=== PATIENT | male | born 1950 | race Caucasian/White ===

== ENCOUNTER → 2018-12-06 | Outpatient (RCR) | payer BC, MEDICARE | LOC: PT 11-08 14:05 | PROVIDERS: ATTEND Neurological Surgery | DX: M43.16 Spondylolisthesis, lumbar region (principal) ==

== ENCOUNTER 2019-01-01 17:00 | Outpatient (RCR) | payer BC, MEDICARE | END 2019-01-05 | LOC: PT 17:00 | PROVIDERS: ATTEND Neurological Surgery | DX: M43.16 Spondylolisthesis, lumbar region (principal); M62.81 Muscle weakness (generalized) | CPT/HCPCS: 97139 ==